=== PATIENT | male | born 1975 | race Caucasian/White ===

== ENCOUNTER 2016-09-22 12:48 | Emergency (ER) | payer OTHER, BC ==
[~2016-09-22] VITALS: Ht 188 cm; Wt 99.6 kg
[2016-09-22 12:56] VITALS: TEMP 36.5; Ht 188 cm; Wt 99.6 kg
[2016-09-22] MEDS ORDERED: METHYLPREDNISOLONE 125 MG VIAL IV STA (13:08)
--- NOTE | 2016-09-22 13:13 | EMERGENCY ROOM VISIT NOTE ---
History Report prepared by Lesia: Pan Castillo Under the Supervision of: Dr. Carmelo Best M.D. First contact with patient: 13:03 Chief Complaint: ALLERGIC REACTION Stated Complaint: ANAPHYLACTIC/ BEE STING Nursing Triage Summary: Sustained bee sting (yellow jacket) in right elbow region at work. Patient states he passed out right after incident. Patient states he had minimal SOB at the time but no SOB at this time. Patient with known reaction to bee stings. Does not have epi-pen. Patient arrived EMS and received 50 of IV benadryl [employer]. Patient's only complaint at this time is fatigue from the benadryl. History of Present Illness The patient is a 41 year old male who presents to the Emergency Room with a resolved allergic reaction that occurred around one hour ago. The patient states that he was moving large objects with a truck. He reports that he moved a mattress and a yellow jacket stung him on his right elbow. The patient notes that he does not have an epinephrine pen. He states that his symptoms were similar to previous incidents before when he was stung by a wasp and white- faced yellow jacket. The patient reports that he finished moving the mattress, and then told his co-worker to call the ambulance. He notes that after 4 minutes he got tired, short of breath, fell to his knees, and went unconscious. The patient states that he does not remember falling backward, but his co- worker told him he did. He denies tightness in his throat, swelling to his tongue, and itching. The patient reports that he went anaphylactic, and he was given 50 mg of IV Benadryl and 800cc of saline in route. He notes that he feels fine now; he is just tired. The patient denies previous health issues and medication allergies. He states that his tetanus is up to date. Source of History: patient Onset: one hour ago Position: other (global) Quality: other (allergic reaction) Timing: resolved Associated Symptoms: + LOC, + SOB, + fatigue Note: Denies: tightness in his throat, swelling to his tongue, and itching Review of Systems See HPI for pertinent positives & negatives. A total of 10 systems reviewed and were otherwise negative. Past Medical & Surgical Medical Problems: (1) No pertinent past medical history Family History No pertinent family history Social History Smoking Status: Former Smoker Alcohol Use: heavy Marital Status: Housing Status: lives with family Occupation Status: employed Current/Historical Medications Scheduled Epinephrine (Epipen 2-Carroll), 1 APPLN IM DIRECTED Prednisone (Prednisone), 2 TAB PO DAILY Allergies Coded Allergies: BEE STING (Verified Allergy, Intermediate, RESP DISTRESS, 12/21/15) Physical Exam Vital Signs Date Time Temp Pulse Resp B/P (MAP) Pulse Ox O2 Delivery O2 Flow Rate FiO2 09/22/16 16:55 91 15 160/79 94 Room Air 09/22/16 16:25 85 15 157/97 93 Room Air 09/22/16 15:38 86 16 125/78 94 Room Air 09/22/16 14:52 84 18 97/56 92 Room Air 09/22/16 14:13 85 16 112/71 94 09/22/16 13:18 79 14 119/78 92 Room Air 09/22/16 12:58 82 09/22/16 12:56 93 Room Air 09/22/16 12:56 36.5 76 118/63 93 Room Air Physical Exam GENERAL: Patient is in no acute distress. HEENT: No acute trauma, normocephalic atraumatic, mucous membranes moist, no nasal congestion, conjunctival injection bilaterally, mild uvular edema. NECK: No stridor, no adenopathy, no meningismus, trachea is midline. LUNGS: Clear to auscultation bilaterally, no wheeze, no rhonchi, breath sounds equal. HEART: Without murmurs gallops or rubs, regular rate and rhythm. ABDOMEN: Soft, nontender, bowel sounds positive, no hernias, no peritonitis. EXTREMITIES: No cyanosis or edema, full range of motion of all the joints without pain or difficulty, no signs for acute trauma. NEUROLOGIC: Oriented x 3, no acute motor or sensory deficits, no focal weakness. SKIN: Apparent bee-sting to the right lateral arm just proximal to the elbow, no signs of infection. Medical Decision & Procedures Medications Administered Medications (Trade) Dose Ordered Sig/Kesha Route Start Time Stop Time Status Last Admin Dose Admin Methylprednisolone Sodium Succinate (Solu-Medrol IV) 125 mg NOW STAT IV 09/22/16 13:08 09/22/16 13:09 DC 09/22/16 13:17 125 MG ED Course 1306: The patient was evaluated in room C02B. A complete history and physical exam was performed. 1308: Ordered Solu-Medrol IV 125 mg IV 1644: Ordered Epinephrine 0.3 mg IM--epipen to take home 1650: Reevaluated the patient. Discussed results and discharge instructions: he verbalized understanding and agreement. The patient is ready for discharge. Medical Decision Differential diagnosis includes: anaphylactic, bee-sting allergy, respiratory distress, uvular edema, wheezing Patient presents for a reaction from a bee sting. He has had anaphylactic reactions before. He does not carry an EpiPen. A few minutes after being stung , he began feeling numbness and tingling and faint and slightly short of breath and then had a brief syncopal event. He received IV Benadryl and IV saline in route, he feels improved. The patient denies itching, he does not feel tightness in his throat or tongue. He is breathing easily. He just is tired from the Benadryl. The patient did have some conjunctival injection plus some mild uvular edema but he was in no significant distress. No hypoxia or tachycardia. No wheezing. I did not think epinephrine was needed emergently. Patient was placed on the surveillance monitor. He received IV Solu-Medrol to prevent further issues. The patient has been watched here for 4 hours, he has done well. He feels at baseline. The patient is being discharged with a short course of Benadryl and prednisone. He will have an EpiPen with him at all times. He was given an EpiPen to take home. He was discharged and encouraged to return for worsening symptoms. Impression Primary Impression: Acute allergic reaction Additional Impression: Bee sting Scribe Attestation The scribe's documentation has been prepared under my direction and personally reviewed by me in its entirety. I confirm that the note above accurately reflects all work, treatment, procedures, and medical decision making performed by me. Departure Information Dispostion Home / Self-Care Prescriptions Epinephrine (EPIPEN 2-CARROLL) 0.3 Mg Inj 1 APPLN IM DIRECTED, #1 APPL 3 Refills Prov: Carmelo Best M.D. 09/22/16 Prednisone (Prednisone) 20 Mg Tab 2 TAB PO DAILY for 4 Days, #8 TAB Prov: Carmelo Best M.D. 09/22/16 Referrals No Doctor, Assigned (PCP) Forms HOME CARE DOCUMENTATION FORM, IMPORTANT VISIT INFORMATION Patient Instructions My [facility] Additional Instructions epipen with you at all times benadryl 2 tab 3x per day for 4 more days prednisone daily for 4 more days return if worsening Problem Qualifiers
[2016-09-22] MEDS ORDERED: EPINEPHRINE ADULT AUTO-INJECT 0.3 MG SYR IM STA (16:44)
[2016-09-22] MEDS ORDERED: EPP3/2 IM (16:49)
[2016-09-22] MEDS ORDERED: PRED20TA PO (16:49)
[2016-09-22 16:55] VITALS: BP 160/79; PULSE 91; O2SAT 94
== END 2016-09-22 17:09 | disposition home or self-care (01) ==
LOC: EDBD 12:48 → C.EDC 12:50
DX: T63.441A Toxic effect of venom of bees, accidental (unintentional), initial encounter (principal); W57.XXXA Bitten or stung by nonvenomous insect and other nonvenomous arthropods, initial encounter; Z87.891 Personal history of nicotine dependence

== ENCOUNTER → 2016-11-17 | Outpatient (CLI) | payer BC ==
[~2016-11-17] MED LIST: EPP3/2 IM
[2016-11-17 13:04] LABS: CHOLESTEROL/HDL RATIO 3.1
== END | disposition home or self-care (01) ==
LOC: C.LABBFT 07:12
PROVIDERS: ATTEND Nurse Practitioner
DX: Z13.1 Encounter for screening for diabetes mellitus (principal)

== ENCOUNTER 2017-02-25 13:21 | Emergency (ER) | payer BC ==
[~2017-02-25] VITALS: Ht 188 cm; Wt 102.3 kg
[2017-02-25 13:28] VITALS: BP 153/102; PULSE 85; TEMP 36.7; O2SAT 97; Ht 188 cm; Wt 102.3 kg
== END 2017-02-25 13:44 | disposition home or self-care (01) ==
LOC: C.EDB 13:24 → C.EDD 13:44
DX: Z02.83 Encounter for blood-alcohol and blood-drug test (principal)

== ENCOUNTER 2017-10-21 19:13 | Emergency (ER) | payer BC ==
[~2017-10-21] VITALS: Ht 186.7 cm; Wt 105.6 kg
[2017-10-21 19:16] VITALS: TEMP 36.4; Ht 186.7 cm; Wt 105.6 kg
[2017-10-21] MEDS ORDERED: FAMOTIDINE 20MG/5ML IV PUSH IV STA (19:20)
[2017-10-21] MEDS ORDERED: METHYLPREDNISOLONE 125 MG VIAL IV STA (19:20)
--- NOTE | 2017-10-21 19:20 | EMERGENCY ROOM VISIT NOTE ---
History Report prepared by Lesia: Pan Castillo Under the Supervision of: Dr. Sherry Montero D.O. First contact with patient: 19:14 Stated Complaint: ALLERGIC REACTION/BEE STING History of Present Illness The patient is a 42 year old male who presents to the Emergency Room with complaints of a resolved allergic reaction that began an hour ago. The patient states he has a known allergy to bees. He reports he was stung by 2 bees this afternoon. The patient notes within a minute it felt like his blood was on fire and became short of breath. He states he then proceeded to fall down and loss consciousness. The patient reports he attempted to give himself an EpiPen, but he is not sure if he stuck himself. He notes he knows he took the first cap off , he does not know if he inserted it into his leg. The girlfriend states it looks like he gave himself the EpiPen because he had a hole in the outer part of his leg. She reports she also gave him an additional EpiPen. The patient notes he typically gets red, hot, and short of breath. He denies swelling in the lips or tongue, difficulty swallowing, nausea, current shortness of breath, hives, and rashes. Patient's family member states she then administered a dose of EpiPen. EMS states the patient was pale, diaphoretic, and tachypneic in the 50s. They report they put him on 2L of oxygen and given Benadryl. No steroids were given. EMS notes this is his fourth episode. Source of History: patient Onset: an hour ago Quality: other (allergic reaction) Timing: resolved Modifying Factors (Worsening): other (bee sting) Modifying Factors (Relieving): other (Epipen) Associated Symptoms: + LOC, + SOB, No rash Note: Associated symptoms: blood being on fire Denies: swelling in the lips or tongue, difficulty swallowing, current shortness of breath, hives Review of Systems See HPI for pertinent positives & negatives. A total of 10 systems reviewed and were otherwise negative. 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 Family History No pertinent family history Social History Smoking Status: Former Smoker Alcohol Use: heavy Marital Status: Housing Status: lives with family Occupation Status: employed Current/Historical Medications Scheduled Epinephrine (Epipen 2-Carroll), 1 UNIT IM DIRECTED Escitalopram Oxalate (Lexapro), 5 MG PO DAILY Prednisone (Prednisone), 0 PO DAILY Scheduled PRN Epinephrine (Epipen), 0.3 MG IM UD PRN for Allergic Reaction Allergies Coded Allergies: BEE STING (Verified Allergy, Intermediate, RESP DISTRESS, 12/21/15) Physical Exam Vital Signs Date Time Temp Pulse Resp B/P (MAP) Pulse Ox O2 Delivery O2 Flow Rate FiO2 10/21/17 23:09 88 18 129/81 95 Room Air 10/21/17 22:38 87 17 95 Room Air 10/21/17 22:30 121/76 10/21/17 22:28 94 19 92 10/21/17 22:00 123/76 10/21/17 21:58 87 19 93 10/21/17 21:30 132/74 10/21/17 21:28 90 25 92 10/21/17 21:23 93 14 116/67 95 Room Air 10/21/17 20:38 90 11 137/85 98 Room Air 10/21/17 20:00 82 12 145/92 97 Room Air 10/21/17 19:30 146/90 10/21/17 19:28 83 18 98 Room Air 10/21/17 19:20 90 10/21/17 19:16 98 Room Air 10/21/17 19:16 36.4 94 15 140/88 98 Room Air Physical Exam GENERAL: alert, well appearing, well nourished, no distress, non-toxic HEAD: No facial swelling. EYE EXAM: normal conjunctiva, PERRL and EOM's grossly intact OROPHARYNX: no exudate, no erythema, lips, buccal mucosa, and tongue normal and mucous membranes are moist. No lip swelling. No tongue swelling. Uvular midline. No mucocutaneous lesions. NECK: supple, no nuchal rigidity, no adenopathy, non-tender. No stridor. LUNGS: Clear to auscultation. Normal chest wall mechanics. No wheezes, rhonchi, rales. HEART: no murmurs, S1 normal and S2 normal, regular rate and rhythm, no ectopy ABDOMEN: abdomen soft, non-tender, normo-active bowel sounds, no masses, no rebound or guarding. BACK: Back is symmetrical on inspection and there is no deformity, no midline tenderness, no CVA tenderness. SKIN: no rashes and no bruising. No erythroderma. No urticaria. UPPER EXTREMITIES: upper extremities are grossly normal. Full range of motion, normal pulses, no swelling LOWER EXTREMITIES: No pitting edema. Full range of motion, normal pulses, no swelling NEURO EXAM: Normal sensorium, cranial nerves II-XII grossly intact, normal speech, no gross weakness of arms, no gross weakness of legs. Medical Decision & Procedures ER Provider Diagnostic Interpretation: Radiology results have been interpreted by the radiologist and reviewed by me. CHEST ONE VIEW PORTABLE CLINICAL HISTORY: Shortness of breath COMPARISON STUDY: No previous studies for comparison. FINDINGS: The heart is borderline enlarged. There is no failure. There is no focal pulmonary consolidation. There are no pleural effusions. There is a 22 mm ossific density projected immediately inferior to the left glenohumeral joint.[ IMPRESSION: No active disease in the chest. Electronically signed by: Gerald Shafer M.D. 10/21/2017 7:53 PM Dictated Date/Time: 10/21/2017 7:52 PM Medications Administered Medications (Trade) Dose Ordered Sig/Kesha Route Start Time Stop Time Status Last Admin Dose Admin Famotidine (Pepcid 20mg Iv Push) 20 mg ONE STAT IV 10/21/17 19:20 10/21/17 19:21 DC 10/21/17 19:26 20 MG Methylprednisolone Sodium Succinate (Solu-Medrol IV) 125 mg NOW STAT IV 10/21/17 19:20 10/21/17 19:21 DC 10/21/17 19:26 125 MG Sodium Chloride 1,000 ml @ 250 mls/hr Q4H STAT IV 10/21/17 19:22 10/21/17 23:21 DC 10/21/17 19:27 250 MLS/HR Epinephrine (Epipen) 0.3 mg NOW STAT IM 10/21/17 22:12 10/21/17 22:13 DC 10/21/17 22:41 0.3 MG ECG Per My Interpretation Indication: SOB/dyspnea Rate (beats per minute): 78 Rhythm: sinus rhythm Findings: T-wave inversion (Lead III), no ectopy, other (Normal axis. Normal intervals. No other ischemic changes.) ED Course 1914: The patient was evaluated in room B11B. A complete history and physical exam was performed. 1919: Ordered Solu-Medrol 125mg IV, Famotidine 20mg IV 1921: Ordered Sodium Chloride 1000 ml @ 250 mls/hr IV 2035: I reevaluated the patient. He is feeling better. 2211: Ordered Epinephrine 0.3mg IM 2217: I reevaluated the patient. He is resting comfortably. I discussed the findings and the treatment plan with the patient. He verbalizes agreement and understanding. The patient will be discharged home in one hour. Medical Decision Differential diagnosis: Etiologies such as allergic reaction, anaphylaxis, urticaria, Hills-Drake syndrome, toxic epidermal necrolysis, erythema multiforme, cellulitis, as well as others were entertained. Patient with significant history of anaphylaxis secondary to bee stings which occurred again today. Patient had his usual reaction and was administered at least one EpiPen by family member, it is unclear if he was ever able to self administer the other. Patient was noted to be in significant distress by EMS but by the time of our arrival here, had normal vital signs, was not requiring oxygen, was awake alert and oriented, had no evidence of swelling or airway compromise, no evidence of urticaria or erythroderma. Patient monitored here for several hours as a precaution although he was anxious to go home. Patient verbalized understanding of need for close follow-up, use of Benadryl and steroids over the next several days, he was given an EpiPen to go home, and a new prescription was written for additional epi-pens. Discussed with patient making all attempts to avoid any additional bee stings. Discussed with him and the family member symptoms to watch and return for, they verbalized understanding and were in agreement. Patient was hemodynamically stable here throughout, no evidence of any recurrence of reactions. Patient states he is very familiar with this is the fourth time this is happened and he is comfortable going home. Patient states typically once he has medicated his symptoms resolve very quickly. Did discuss with the patient the critical nature and life-threatening potential of anaphylaxis, he verbalized understanding of this and was in agreement with plan. 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 I confirm that the note above accurately reflects all work, treatment, procedures, and medical decision making performed by me. Departure Information Dispostion Home / Self-Care Prescriptions Prednisone (Prednisone) 20 Mg Tab 0 PO DAILY, #14 TAB 3 TABS DAILY FOR 2 DAYS, THEN 2 TABS DAILY FOR 2 DAYS, THEN 1 TAB DAILY FOR 2 DAYS, THEN 1/2 TAB DAILY FOR 2 DAYS. Prov: Sherry Montero, DO 10/21/17 Epinephrine (EPIPEN 2-CARROLL) 0.3 Mg Inj 1 UNIT IM DIRECTED for Allergic Reaction, #1 BOX Prov: Sherry Montero, DO 10/21/17 Forms HOME CARE DOCUMENTATION FORM, IMPORTANT VISIT INFORMATION Patient Instructions My [facility] Additional Instructions Please keep the EpiPen with you at all times. Please continue using Benadryl every 6-8 hours over the next 2 days. Please take steroids as prescribed. If you have any recurrent symptoms of an allergic reaction, develop chest pain, trouble breathing, vomiting, abdominal pain, dizziness, forgotten a rash, you have any other new or concerning symptoms, please return the emergency room. Problem Qualifiers Additional Impression: Allergic reaction Encounter type: initial encounter Qualified Codes: T78.40XA - Allergy, unspecified, initial encounter
[2017-10-21] MEDS ORDERED: SODIUM CHLORIDE 0.9% 1000ML 1,000 ML IV STA (19:22)
--- NOTE | 2017-10-21 19:54 | DIAGNOSTIC IMAGING REPORT ---
CHEST ONE VIEW PORTABLE CLINICAL HISTORY: Shortness of breath COMPARISON STUDY: No previous studies for comparison. FINDINGS: The heart is borderline enlarged. There is no failure. There is no focal pulmonary consolidation. There are no pleural effusions. There is a 22 mm ossific density projected immediately inferior to the left glenohumeral joint.[ IMPRESSION: No active disease in the chest. Electronically signed by: Gerald Shafer M.D. 10/21/2017 7:53 PM Dictated Date/Time: 10/21/2017 7:52 PM
[2017-10-21] MEDS ORDERED: EPP3/2 IM ×2 (20:04→22:11)
[2017-10-21] MEDS ORDERED: ESCI1TAB6 PO (20:04)
[2017-10-21] MEDS ORDERED: PRED20TA PO (22:11)
[2017-10-21] MEDS ORDERED: EPINEPHRINE ADULT AUTO-INJECT 0.3 MG SYR IM STA (22:12)
[2017-10-21 23:09] VITALS: BP 129/81; PULSE 88; O2SAT 95
== END 2017-10-21 23:35 | disposition home or self-care (01) ==
LOC: C.EDB 19:13 → EDBD 19:13 → C.EDB 23:35
DX: T63.441A Toxic effect of venom of bees, accidental (unintentional), initial encounter (principal); Z79.899 Other long term (current) drug therapy; Z91.030 Bee allergy status; Z87.891 Personal history of nicotine dependence